=== PATIENT | female | born 1985 | race Asian ===

== ENCOUNTER 2020-04-05 15:37 | Emergency (ER) | payer BC ==
[2020-04-05 16:18] VITALS: BMI 32.8
[2020-04-05] MEDS ORDERED: SODIUM CHLORIDE 1,000 ML IV STA (17:20)
[2020-04-05] MEDS ORDERED: DEXAMETHASONE SOD PHOSPHATE 4 MG/1 ML VIAL IVPUSH ONE (17:53)
[2020-04-05 18:09] LABS: BASO % 0.1 % (0-2.0); EOS % 0.2 % (0-4.5); HEMATOCRIT 33.9 % (32.4-45.2); HEMOGLOBIN 10.9 GM/dL (10.7-15.3); LYMPH % 10.5 % (8-40); MCH 25.3 pg (25.7-33.7); MCHC 32.3 g/dl (32.0-36.0); MEAN CELL VOLUME 78.3 fl (80-96); MEAN PLT VOLUME 8.7 fl (7.5-11.1); MONO % 11.2 % (3.8-10.2); PLATELET COUNT 172 K/MM3 (134-434); RBC 4.33 M/mm3 (3.60-5.2); RDW 21.5 % (11.6-15.6); WHITE BLOOD COUNT 9.1 K/mm3 (4.0-10.0)
[2020-04-05] MEDS ORDERED: DEXAMETHASONE SOD PHOSPHATE 4 MG/1 ML VIAL ONE (18:17)
[2020-04-05 18:19] LABS: INR 1.03 (0.83-1.09); PROTHROMBIN TIME (PATIENT) 12.6 SEC (9.7-13.0)
[2020-04-05 18:27] LABS: CHLORIDE 107 mmol/L (98-107); SODIUM 138 mmol/L (136-145)
[2020-04-05 18:29] LABS: ALBUMIN 2.4 g/dl (3.4-5.0); ANION GAP 8 MMOL/L (8-16); BLOOD UREA NITROGEN 6.2 mg/dL (7-18); CALCIUM 8.5 mg/dL (8.5-10.1); CO2 24 mmol/L (21-32)
[2020-04-05 18:30] LABS: GLUCOSE,RANDOM 87 mg/dL (74-106)
[2020-04-05 18:32] LABS: SGOT/AST 34 U/L (15-37); SGPT/ALT 26 U/L (13-61)
[2020-04-05 18:33] LABS: CREATININE 0.5 mg/dL (0.55-1.3)
[2020-04-05 18:34] LABS: BILIRUBIN,TOTAL 0.2 mg/dL (0.2-1)
[2020-04-05 18:35] LABS: ALK PHOS 113 U/L (45-117)
[2020-04-05 18:36] LABS: LDH 203 U/L (84-246); TOT PROT 6.3 g/dl (6.4-8.2)
[2020-04-05 18:53] LABS: ANISOCYTOSIS 2+; MACROCYTOSIS 0; OVALOCYTE 1+; PLATELET ESTIMATE NORMAL
[2020-04-05 19:01] LABS: ERYTHROCYTE SEDIMENTATION RATE 98 mm/hr (0-20)
[2020-04-05] MEDS ORDERED: POTASSIUM CHLORIDE TABS 20 MEQ TABLET.ER (FP) PO ONE ×2 (19:03→20:30)
[2020-04-05 19:04] LABS: MAGNESIUM 1.2 mg/dL (1.8-2.4)
[2020-04-05] MEDS ORDERED: MAGNESIUM SULF 50% (8.12 MEQ/2 ML-1 GM VIAL) IVPB ONE (20:01)
[2020-04-05] MEDS ORDERED: MAGNESIUM SULFATE IN WATER 2 GM/50 ML IVPB IVPB ONE (20:31)
[2020-04-05 20:38] VITALS: TEMP 99.3
[2020-04-05 21:32] VITALS: BP 103/66; PULSE 130
== END 2020-04-05 21:29 | disposition short-term general hospital (02) ==
LOC: JER 15:37
PROC: 3E033GC Introduction of Other Therapeutic Substance into Peripheral Vein, Percutaneous Approach (ICD-10-PCS; principal; 2020-04-05)
PROC: 3E033GC Introduction of Other Therapeutic Substance into Peripheral Vein, Percutaneous Approach (ICD-10-PCS; 2020-04-05)
PROC: 3E0337Z Introduction of Electrolytic and Water Balance Substance into Peripheral Vein, Percutaneous Approach (ICD-10-PCS; 2020-04-05)
DX: U07.1 COVID-19 (principal); J96.01 Acute respiratory failure with hypoxia; Z3A.26 26 weeks gestation of pregnancy
CPT/HCPCS: 36415; 71045-TC-FY; 76815; 80053; 82550; 82728; 83615; 83735; 84484; 85025; 85379; 85610; 85651; 85730; 86140; 87426; 93005; 93010; 99285-25

== ENCOUNTER 2020-06-19 17:16 | Inpatient (IN) | payer BC ==
[2020-06-19 18:37] VITALS: BMI 32.8
[2020-06-19] MEDS ORDERED: AMPICILLIN SODIUM 2 GM VIAL ONE (18:55)
[2020-06-19] MEDS ORDERED: SODIUM CHLORIDE 100 ML IVPB ONE (18:55)
[2020-06-19] MEDS ORDERED: AMPICILLIN - 2 GM in SODIUM CHLORIDE 100 ML IVPB ONE (19:00)
[2020-06-19 19:53] LABS: BASO % 0.3 % (0-2.0); EOS % 0.7 % (0-4.5); HEMATOCRIT 33.5 % (32.4-45.2); HEMOGLOBIN 10.7 GM/dL (10.7-15.3); LYMPH % 22.3 % (8-40); MCH 25.7 pg (25.7-33.7); MCHC 31.9 g/dl (32.0-36.0); MEAN CELL VOLUME 80.6 fl (80-96); MEAN PLT VOLUME 9.4 fl (7.5-11.1); MONO % 10.1 % (3.8-10.2); NEUT % 66.6 % (42.8-82.8); PLATELET COUNT 194 K/MM3 (134-434); RBC 4.16 M/mm3 (3.60-5.2); RDW 16.8 % (11.6-15.6); WHITE BLOOD COUNT 10.1 K/mm3 (4.0-10.0)
[2020-06-19 19:59] LABS: INR 0.99 (0.83-1.09)
[2020-06-19] MEDS ORDERED: ELECTROLYTE-148 SOLN 1,000 ML IV SCH (20:00)
[2020-06-19 20:02] LABS: ACTIVATED PTT 28.6 SECONDS (25.2-36.5)
[2020-06-19] MEDS ORDERED: OXYTOCIN 30 UNITS in 0.9% NS 30 UNIT/500 ML INFUS.BAG IVPB SCH (20:15)
[2020-06-19 20:27] LABS: CALCIUM 9.3 mg/dL (8.5-10.1)
[2020-06-19 20:30] LABS: CREATININE 0.5 mg/dL (0.55-1.3)
[2020-06-19] MEDS ORDERED: OXYTOCIN 30 UNITS in 0.9% NS 30 UNIT/500 ML INFUS.BAG IVPB ONE (21:28)
[2020-06-19] MEDS: AMPICILLIN - 1 GM in SODIUM CHLORIDE 100 ML IVPB SCH (23:15)
[2020-06-19] MEDS ORDERED: AMPICILLIN SODIUM 1 GM VIAL ONE (23:18)
[2020-06-20] MEDS ORDERED: PCA PUMP NR ONE (01:37)
[2020-06-20] MEDS ORDERED: FENTANYL/BUPIVACAINE/NS/PF - PCEA - 50 ML DISP.SYRIN EP ONE ×3 (01:37→08:21)
[2020-06-20] MEDS ORDERED: BUPIVACAINE HCL/PF 0.25% (2.5MG/ML) 10 ML VIAL ONE (01:46)
[2020-06-20] MEDS: FENTANYL/BUPIVACAINE/NS/PF - PCEA - 50 ML DISP.SYRIN EP SCH (02:05)
[2020-06-20] MEDS ORDERED: NALOXONE HCL 0.4 MG/ML VIAL IVPUSH PRN (02:11)
[2020-06-20] MEDS ORDERED: AMPICILLIN SODIUM 1 GM VIAL ONE ×2 (03:17→08:45)
[2020-06-20] MEDS: AMPICILLIN - 1 GM in SODIUM CHLORIDE 100 ML IVPB SCH ×3 (03:20→11:00)
[2020-06-20] MEDS ORDERED: OXYTOCIN 20 UNITS in 0.9% NS 20 UNIT/1,000 ML INFUS.BAG IV ONE ×2 (08:24→14:00)
[2020-06-20] MEDS ORDERED: LIDOCAINE HCL 1% PRESERVATIVE FREE - 30ML VIAL ONE (08:24)
[2020-06-20] MEDS ORDERED: DEXTROSE 5%-LACTATED RINGERS 1,000 ML IV SCH (09:45)
[2020-06-20 11:49] LABS: CORD HCO3 18.6 mmHg (20-29); CORD PCO2 46.1 mmHg (30-78); CORD pH 7.224 (7.14-7.44)
[2020-06-20] MEDS: IBUPROFEN 600 MG TABLET (FP) PO PRN (11:55)
[2020-06-20] MEDS ORDERED: IBUPROFEN 600 MG TABLET (FP) PO ONE (11:56)
[2020-06-20] MEDS ORDERED: BISACODYL 10 MG SUPP.RECT RC PRN (15:05)
[2020-06-20] MEDS ORDERED: METHYLERGONOVINE MALEATE 0.2 MG/1 ML AMP IM PRN (15:05)
[2020-06-20] MEDS ORDERED: WITCH HAZEL 50% (TUCKS) 40 PAD/JAR PAD TP PRN (15:05)
[2020-06-20] MEDS ORDERED: BENZOCAINE 20% 57 GM BOTTLE TP PRN (15:05)
[2020-06-20] MEDS ORDERED: BENZOCAINE 28 GM HEMORRHOIDAL OINTMENT TP PRN (15:05)
[2020-06-20] MEDS ORDERED: D5W-LR W/ 20 UNITS OXYTOCIN 20 UNIT/1,000 ML INFUS.BAG IV SCH (15:15)
[2020-06-20] MEDS: FERROUS SO4 325 MG TABLET (FP) PO SCH (22:00)
[2020-06-21] MEDS: FENTANYL/BUPIVACAINE/NS/PF - PCEA - 50 ML DISP.SYRIN EP SCH (03:01)
[2020-06-21 08:09] LABS: BASO % 0.5 % (0-2.0); EOS % 1.6 % (0-4.5); HEMATOCRIT 27.1 % (32.4-45.2); HEMOGLOBIN 8.9 GM/dL (10.7-15.3); LYMPH % 20.6 % (8-40); MCH 26.2 pg (25.7-33.7); MCHC 32.8 g/dl (32.0-36.0); MEAN CELL VOLUME 79.8 fl (80-96); MEAN PLT VOLUME 8.8 fl (7.5-11.1); MONO % 8.5 % (3.8-10.2); NEUT % 68.8 % (42.8-82.8); PLATELET COUNT 204 K/MM3 (134-434); RBC 3.39 M/mm3 (3.60-5.2); RDW 17.1 % (11.6-15.6); WHITE BLOOD COUNT 12.1 K/mm3 (4.0-10.0)
[2020-06-21] MEDS: IBUPROFEN 600 MG TABLET (FP) PO PRN ×2 (08:12→16:21)
[2020-06-21] MEDS: FERROUS SO4 325 MG TABLET (FP) PO SCH ×2 (09:38→21:44)
[2020-06-21] MEDS: PRENATAL VITAMINS W/ FOLIC ACID TABLET (FP) PO SCH (09:40)
[2020-06-21] MEDS: ACETAMINOPHEN 325 MG TABLET (FP) PO PRN (16:20)
[2020-06-21] MEDS ORDERED: SENNOSIDES/DOCUSATE COMBO (SENNA PLUS) TABLET (UD) PO PRN (22:00)
[2020-06-22] MEDS: ACETAMINOPHEN 325 MG TABLET (FP) PO PRN ×3 (01:20→17:56)
[2020-06-22] MEDS: IBUPROFEN 600 MG TABLET (FP) PO PRN ×3 (01:20→17:55)
[2020-06-22 09:28] VITALS: BP 102/67; PULSE 87; TEMP 98.6
[2020-06-22] MEDS: PRENATAL VITAMINS W/ FOLIC ACID TABLET (FP) PO SCH (10:11)
[2020-06-22] MEDS: FERROUS SO4 325 MG TABLET (FP) PO SCH (10:11)
== END 2020-06-22 18:00 | disposition home or self-care (01) | DRG 807 ==
LOC: JDEL 17:16 → JLDR 17:50 → J3W 06-20 15:19
PROVIDERS: ADMIT Obstetrics & Gynecology; ATTEND Obstetrics & Gynecology
PROC: 10E0XZZ Delivery of Products of Conception, External Approach (ICD-10-PCS; principal; 2020-06-20)
PROC: 0W8NXZZ Division of Female Perineum, External Approach (ICD-10-PCS; 2020-06-20)
DX: O24.420 Gestational diabetes mellitus in childbirth, diet controlled (principal); Z37.0 Single live birth; O99.214 Obesity complicating childbirth; E66.9 Obesity, unspecified; O90.81 Anemia of the puerperium; D64.9 Anemia, unspecified; O70.1 Second degree perineal laceration during delivery; O69.81X0 Labor and delivery complicated by cord around neck, without compression, not applicable or unspecified; Z86.16 Personal history of COVID-19; Z3A.37 37 weeks gestation of pregnancy
CPT/HCPCS: 36415; 36600; 59409; 80048; 82803; 82962; 85025; 85610; 85730; 86780; 86850; 86900; 86901; C9803; U0003

== ENCOUNTER 2023-05-14 06:40 | Inpatient (IN) | payer BC ==
[2023-05-14] MEDS: ELECTROLYTE-148 SOLN 1,000 ML IV SCH (08:31)
[2023-05-14 09:16] VITALS: BMI 35.6
[2023-05-14 10:04] LABS: BASO % 0.3 % (0-2.0); EOS % 0.7 % (0-4.5); HEMATOCRIT 34.1 % (32.4-45.2); HEMOGLOBIN 10.8 GM/dL (10.7-15.3); LYMPH % 19.3 % (8-40); MCHC 31.8 g/dl (32.0-36.0); MEAN CELL VOLUME 75.5 fl (80-96); MEAN PLT VOLUME 8.3 fl (7.5-11.1); MONO % 6.8 % (3.8-10.2); NEUT % 72.9 % (42.8-82.8); PLATELET COUNT 227 10^3/uL (134-434); RBC 4.52 M/mm3 (3.60-5.2); RDW 26.8 % (11.6-15.6); WHITE BLOOD COUNT 10.7 K/mm3 (4.0-10.0)
[2023-05-14 10:17] LABS: INR 1.08 (0.83-1.09); PROTHROMBIN TIME (PATIENT) 12.5 SEC (9.7-13.0)
[2023-05-14 10:20] LABS: ACTIVATED PTT 30.7 SECONDS (25.2-36.5)
[2023-05-14] MEDS ORDERED: FENTANYL/BUPIVACAINE/NS/PF - PCEA - 50 ML DISP.SYRIN EP ONE (10:27)
[2023-05-14] MEDS ORDERED: BUPIVACAINE HCL/PF 0.25% (2.5MG/ML) 10 ML VIAL ONE (10:30)
[2023-05-14] MEDS ORDERED: LIDO 2%/EPI 1:200000 PRESRVFRE (20 ML SDVIAL) ONE (10:30)
[2023-05-14 10:45] LABS: ANISOCYTOSIS 2+; MACROCYTOSIS 0
[2023-05-14] MEDS: FENTANYL/BUPIVACAINE/NS/PF - PCEA - 50 ML DISP.SYRIN EP SCH (10:50)
[2023-05-14] MEDS ORDERED: NALOXONE HCL 0.4 MG/ML VIAL IVPUSH PRN (10:53)
[2023-05-14 11:48] LABS: POTASSIUM 3.6 mmol/L (3.5-5.1)
[2023-05-14 11:54] LABS: BLOOD UREA NITROGEN 6.6 mg/dL (7-18)
[2023-05-14 11:57] LABS: CREATININE 0.4 mg/dL (0.55-1.3)
[2023-05-14] MEDS ORDERED: OXYTOCIN 20 UNITS in 0.9% NS 20 UNIT/1,000 ML INFUS.BAG IV ONE (13:51)
[2023-05-14] MEDS ORDERED: LIDOCAINE HCL 1% PRESERVATIVE FREE - 30ML VIAL ONE (13:51)
[2023-05-14] MEDS: OXYTOCIN 20 UNITS in 0.9% NS 20 UNIT/1,000 ML INFUS.BAG IV SCH (14:34)
[2023-05-14] MEDS ORDERED: WITCH HAZEL 50% (TUCKS) 40 PAD/JAR PAD TP PRN (14:43)
[2023-05-14] MEDS ORDERED: ACETAMINOPHEN 325 MG TABLET (FP) PO PRN (14:43)
[2023-05-14] MEDS ORDERED: BISACODYL 10 MG SUPP.RECT RC PRN (14:43)
[2023-05-14] MEDS ORDERED: oxyCODONE HCL 5 MG TABLET PO PRN (14:43)
[2023-05-14] MEDS ORDERED: BENZOCAINE 28 GM HEMORRHOIDAL OINTMENT TP PRN (14:43)
[2023-05-14] MEDS ORDERED: METHYLERGONOVINE MALEATE 0.2 MG/1 ML AMP IM PRN (14:43)
[2023-05-14 15:07] LABS: CORD BASE EXCESS -4.7 mmol/L (0-2); CORD HCO3 20.7 mmHg (20-29); CORD PCO2 39.6 mmHg (30-78); CORD pH 7.336 (7.14-7.44)
[2023-05-14 15:08] LABS: CORD BASE EXCESS -4.4 mmol/L (0-2); CORD HCO3 22.5 mmHg (20-29); CORD PCO2 48.3 mmHg (30-78); CORD pH 7.287 (7.14-7.44)
[2023-05-14] MEDS ORDERED: IBUPROFEN 600 MG TABLET (FP) PO ONE (16:29)
[2023-05-14] MEDS: IBUPROFEN 600 MG TABLET (FP) PO PRN (16:32)
[2023-05-14 20:57] LABS: HIV INTERPRETATION NEGATIVE (NEGATIVE)
[2023-05-15] MEDS: BENZOCAINE 20% 57 GM BOTTLE TP PRN (08:20)
[2023-05-15 08:31] LABS: BASO % 0.8 % (0-2.0); EOS % 0.8 % (0-4.5); HEMATOCRIT 32.7 % (32.4-45.2); HEMOGLOBIN 10.3 GM/dL (10.7-15.3); MCHC 31.5 g/dl (32.0-36.0); MEAN CELL VOLUME 76.1 fl (80-96); MEAN PLT VOLUME 8.2 fl (7.5-11.1); MONO % 7.1 % (3.8-10.2); NEUT % 73.3 % (42.8-82.8); PLATELET COUNT 252 10^3/uL (134-434); RBC 4.29 M/mm3 (3.60-5.2); RDW 26.9 % (11.6-15.6); WHITE BLOOD COUNT 12.3 K/mm3 (4.0-10.0)
[2023-05-15] MEDS: PRENATAL VITAMINS W/ FOLIC ACID TABLET (FP) PO SCH (09:37)
[2023-05-16] MEDS: SENNOSIDES/DOCUSATE COMBO (SENNA PLUS) TABLET (UD) PO PRN (09:22)
[2023-05-16 09:25] VITALS: RESP 18
[2023-05-16 17:41] LABS: HEMATOCRIT 31.6 % (32.4-45.2); HEMOGLOBIN 10.2 GM/dL (10.7-15.3); MCH 24.6 pg (25.7-33.7); MCHC 32.4 g/dl (32.0-36.0); MEAN PLT VOLUME 8.1 fl (7.5-11.1); PLATELET COUNT 251 10^3/uL (134-434); RBC 4.16 M/mm3 (3.60-5.2); WHITE BLOOD COUNT 10.3 K/mm3 (4.0-10.0)
[2023-05-16] MEDS: SIMETHICONE 80 MG TAB.CHEW (FP) PO PRN (22:24)
[2023-05-17 09:00] VITALS: BP 92/56; PULSE 80; TEMP 97.8
== END 2023-05-17 16:15 | disposition home or self-care (01) | DRG 807 ==
LOC: JDEL 06:40 → JLDR 07:16 → J3W 17:15
PROVIDERS: ADMIT Obstetrics & Gynecology; ATTEND Obstetrics & Gynecology
PROC: 10E0XZZ Delivery of Products of Conception, External Approach (ICD-10-PCS; principal; 2023-05-14)
PROC: 0KQM0ZZ Repair Perineum Muscle, Open Approach (ICD-10-PCS; 2023-05-14)
PROC: 10907ZC Drainage of Amniotic Fluid, Therapeutic from Products of Conception, Via Natural or Artificial Opening (ICD-10-PCS; 2023-05-14)
DX: O70.1 Second degree perineal laceration during delivery (principal); Z37.0 Single live birth; Z3A.38 38 weeks gestation of pregnancy
CPT/HCPCS: 36415; 36600; 59025; 80048; 82803; 85025; 85027; 85610; 85730; 86780; 86850; 86900; 86901; 87389